=== PATIENT | female | born 1995 | race African-American/Black ===

== ENCOUNTER 2018-10-22 08:35 | Emergency (ER) | payer OTHER ==
--- NOTE | 2018-10-22 08:40 | PDOC ---
History of Present Illness - General Stated Complaint: DIABETIC Time Seen by Provider: 10/22/18 08:40 History Source: Patient Exam Limitations: No Limitations - History of Present Illness Initial Comments: HPI: 23 y/o female BIBEMS to [facility] ER complaining of diffuse abdominal pain, vomiting , and diarrhea. Symptoms started yesterday at work. Pt unwilling to provide further details regarding the pt. Runs her hands over her entire abdomen when asked to point to location of pain. Reports she was evaluated at [facility] ED last evening. Was given toradol, which allowed her to sleep. Found to be hyperglycemia, which was corrected. Pt then elected to leave AMA because she, felt better. Symptoms returned this morning. Pt is a type one diabetic. Diagnosed at age 12. Managed with humalog and novolin. Has not taken insulin at home in two weeks after running out. Pt does not have a PCP or skull splitter. States she has her insulin filled by different emergency departments. PCP: None Social Hx: - EtOH: Denies - Tobacco: Denies - Street drugs: Denies Medical Hx: - T1DM - Gallstones - Pancreatitis Past History - Past Medical History Allergies/Adverse Reactions: Allergies Allergy/AdvReac Type Severity Reaction Status Date / Time No Known Allergies Allergy Verified 10/22/18 08:44 Home Medications: Ambulatory Orders Insulin Detemir [Levemir Flextouch] 10 unit SQ HS 10/22/18 Review of Systems - Review of Systems Able to Perform ROS?: Yes Comments:: Pt refused to fully participate in ROS Denies chest pain Denies SOB *Physical Exam - Vital Signs Vital Signs (72 hours) 10/22/18 08:40 Temperature 97.7 F Pulse Rate 76 Respiratory 22 H Rate Blood Pressure 155/96 O2 Sat by Pulse 98 Oximetry (%) - Physical Exam Comments: Constitutional: Non-toxic adult female in no acute distress. Found semi-fowlers on hospital bed. Alert and oriented x4. Speech was non-labored, non-pressured. Head: Normocephalic. No obvious external signs of trauma. Eyes: Sclerae white. Ears: Hearing grossly intact. Nose: No nasal discharge. Neck: Supple, trachea is midline. Cardiovascular / Chest: Regular rate and regular rhythm. No murmur, rubs, clicks, or gallops. Peripheral pulses: radial pulses full. Respiratory: Breathing unlabored. Normal respiratory pattery. No Kussmaul breathing. Equal chest rise and fall. Clear to auscultation bilaterally. No stridor, no wheezing, no rhonchi. Gastrointestinal: abdomen is diffusely tender. Pt jerked providers hands off abdomen when attempting to perform full abdominal exam. Globally, abdomen appears soft and non-distended. No overlying skin lesions or obvious signs of trauma. Neuro: Alert and oriented. Moving all four extremities spontaneously. Gait normal. Skin: Warm, dry, and intact. No diaphoresis. Psych: Affect: emotive. ED Treatment Course - LABORATORY CBC & Chemistry Diagram: 10/22/18 09:15 10/22/18 09:15 - ADDITIONAL ORDERS Additional order review: 10/22/18 10/22/18 09:10 09:00 POC Glucometer 355 Opiates Screen Negative Methadone Screen Negative Barbiturate Screen Negative Phencyclidine Screen Negative Ur Amphetamines Screen Negative MDMA (Ecstasy) Screen Negative Benzodiazepines Screen Negative Cocaine Screen Negative 10/22/18 09:00 POC Glucometer 355
[2018-10-22 08:43] VITALS: BMI 27.4
[2018-10-22] MEDS ORDERED: LACTATED RINGERS SOLUTION 1000 ML INFUS.BAG IV ONE (08:47)
[2018-10-22] MEDS ORDERED: ONDANSETRON 4 MG/2 ML VIAL IVPUSH ONE (09:22)
[2018-10-22] MEDS ORDERED: ACETAMINOPHEN 1000 MG/100 ML VIAL (NON FORMULARY) IVPB ONE (09:31)
[2018-10-22] MEDS ORDERED: ONDANSETRON 4 MG/2 ML VIAL ONE (09:31)
[2018-10-22 09:38] LABS: VENOUS PC02 38.8 mmHg (38-52); VENOUS PH 7.37 (7.32-7.42); VENOUS PO2 27.2 mmHg (28-48)
[2018-10-22] MEDS ORDERED: ACETAMINOPHEN INJECTION 100 ML IVPB ONE (09:40)
[2018-10-22 09:44] LABS: BASO % 0.7 % (0-2.0); EOS % 0.6 % (0-4.5); HEMATOCRIT 41.8 % (32.4-45.2); HEMOGLOBIN 14.1 GM/dL (10.7-15.3); LYMPH % 30.4 % (8-40); MCHC 33.8 g/dl (32.0-36.0); MEAN CELL VOLUME 91.7 fl (80-96); MEAN PLT VOLUME 10.4 fl (7.5-11.1); MONO % 5.3 % (3.8-10.2); PLATELET COUNT 180 K/MM3 (134-434); RBC 4.55 M/mm3 (3.60-5.2); RDW 13.2 % (11.6-15.6); WHITE BLOOD COUNT 7.7 K/mm3 (4.0-10.0)
[2018-10-22 09:47] LABS: COCAINE, UR NEGATIVE ng/ml (CUTOFF=300); METHADONE, UR NEGATIVE ng/ml (CUTOFF=300); OPIATES, URI NEGATIVE ng/ml (CUTOFF=300); PHENCYCLIDINE,URINE NEGATIVE ng/ml (CUTOFF=25); URINE AMPHETAMINES NEGATIVE ng/ml (CUTOFF=500); URINE BARBITURATES NEGATIVE ng/ml (CUTOFF=200); URINE BENZODIAZEPINES NEGATIVE ng/ml (CUTOFF=200)
[2018-10-22 10:03] LABS: PH,URINE 5.5 (5.0-8.0); URINE APPEARANCE CLEAR; URINE BILIRUBIN NEGATIVE (<2.0 mg/dL); URINE COLOR YELLOW; URINE GLUCOSE (UA) 2+ (NEGATIVE); URINE KETONE 2+ (NEGATIVE); URINE LEUK ESTERASE NEGATIVE (NEGATIVE); URINE NITRITE POSITIVE (NEGATIVE); URINE PROTEIN NEGATIVE (NEGATIVE); URINE UROBILINOGEN 0.2 mg/dL (0.2-1.0)
[2018-10-22 10:10] LABS: ALBUMIN 3.6 g/dl (3.4-5.0); ALK PHOS 87 U/L (45-117); ANION GAP 10 MMOL/L (8-16); BILIRUBIN,TOTAL 0.6 mg/dL (0.2-1); BLOOD UREA NITROGEN 9 mg/dL (7-18); CALCIUM 8.9 mg/dL (8.5-10.1); CHLORIDE 105 mmol/L (98-107); CO2 22 mmol/L (21-32); LIPASE 337 U/L (73-393); MAGNESIUM 1.9 mg/dL (1.8-2.4); SGOT/AST 17 U/L (15-37); SGPT/ALT 17 U/L (13-61); SODIUM 137 mmol/L (136-145); TOT PROT 7.6 g/dl (6.4-8.2)
[2018-10-22] MEDS ORDERED: FAMOTIDINE 20 MG/50 ML IVPB 20 MG/50 ML MG IVPB ONE ×2 (10:14→10:26)
[2018-10-22] MEDS ORDERED: METOCLOPRAMIDE HCL INJECTION 10 MG/2 ML VIAL IVPB ONE (10:15)
[2018-10-22] MEDS ORDERED: METOCLOPRAMIDE HCL INJECTION 10 MG/2 ML VIAL ONE (10:18)
--- NOTE | 2018-10-22 10:28 | PDOC ---
Attending Attestation - Resident Resident Name: OttBrannon - ED Attending Attestation I have performed the following: I have examined & evaluated the patient, The case was reviewed & discussed with the resident, I agree w/resident's findings & plan, Exceptions are as noted - HPI HPI: 10/22/18 10:17 The patient is a 23 year old female with a PMH of Type 1 DM since age 12 who presents to the ER with elevated blood glucose of 355 and complaining of abdominal pain since yesterday. She also reports associated nonbloody, nonbilious vomit and nonbloody diarrhea. Patient was seen at [facility] yesterday and given toradol then. She reports feeling better after toradol, and signed out AMA. She presents to this ER for evaluation of recurrent abdominal pain. Reports her pain is worse in the epigastric area and that it feels like her previous pancreatitis. Has not taken insulin in 2 weeks as she ran out. 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 The patient denies chest pain, shortness of breath, headache and dizziness. Denies fever, chills, and constipation. Denies dysuria, frequency, urgency and hematuria. Allergies: NKA Past surgical history: None reported. Social history: No reported alcohol, drug or cigarette use. - Physicial Exam PE: 10/22/18 10:33 GENERAL: Awake, alert, and fully oriented, appears uncomfortable but in no acute distress HEAD: No signs of trauma EYES: PERRLA, EOMI, sclera anicteric, conjunctiva clear ENT: Oropharynx clear without exudates. Moist mucosa LUNGS: Breath sounds equal, clear to auscultation bilaterally. No wheezes, and no crackles HEART: Regular rate and rhythm, normal S1 and S2, no murmurs, rubs or gallops ABDOMEN: Diffuse abd ttp, however, when distracted no abd ttp. Soft, no guarding , no distention, no rebound. No masses EXTREMITIES: Normal range of motion, no edema. No erythema, or tenderness NEUROLOGICAL: Normal speech, cranial nerves intact, equal strength and sensation b/l. Normal gait. SKIN: Warm, Dry, normal turgor, no rashes or lesions noted. - Medical Decision Making 10/22/18 08:59 23yo F hx DM1, non compliant with insulin, pancreatitis presents to the ED with recurrent abd pain, N/V. Vitals wnl (RR normalized to 14 on my exam). Exam with non toxic appearing pt, with diffuse abd ttp, when distracted none. DDx includes DKA vs gastropareisis vs cannanbinoid hyperemesis vs gastroenteritis. Plan -labs -serum preg -IVF -antiemetics -pain control -reassess 10/22/18 10:42 CBC with no leukocytosis CMP with non-AG hyperglycemia Lipase neg Serum preg neg UA with nitrite +, but pt has no dysuria, frequency, urgerncy so will hold off on treatment UTox +THC although pt denies DDx includes gastropareisis vs cannabinoid hyperemesis vs gastroenteritis Pt noted by nurse to be sticking her finger down her throat on multiple occasions to make herself vomit Advised pt not to do so Pt requesting toradol for pain as this often works for her Toradol 30mg IV ordered Will PO challenge and reassess 10/22/18 11:44 Tolerating PO Abd discomfort resolved, rpt abd exam benign Discussed lab results with pt and the importance of taking insulin Dr. 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 Clinically well appearing, stable for DC I discussed the physical exam findings, ancillary test results and final diagnoses with the patient. I answered all of the patient's questions. The patient was satisfied with the care received and felt comfortable with the discharge plan and treatment plan. The patient will call their primary care physician within 24 hours to arrange follow-up and will return to the Emergency Department with any new, persistent or worsening symptoms. Heart Score/ECG Review #1 10/22/18 10:42 Twelve-lead EKG was performed and reviewed by me. Sinus bradycardia, rate 54. Normal axis. No ST elevations.. +PVC. No previous EKG to compare.
[2018-10-22] MEDS ORDERED: KETOROLAC TROMETHAMINE 30 MG/1 ML VIAL IVPUSH ONE (10:32)
[2018-10-22] MEDS ORDERED: KETOROLAC TROMETHAMINE 30 MG/1 ML VIAL ONE (10:34)
[2018-10-22 10:54] LABS: GLUCOSE,RANDOM 364 mg/dL (74-106)
[2018-10-22] MEDS ORDERED: INSULIN REGULAR HUMAN 100 UNITS/ML *VIAL SQ ONE (10:54)
[2018-10-22] MEDS ORDERED: INSULIN REGULAR HUMAN 100 UNITS/ML *VIAL ONE (11:32)
[2018-10-22 12:49] VITALS: BP 144/84; PULSE 67; TEMP 98.4
[2018-10-22 16:18] LABS: EPI CELLS 2+ /HPF (FEW); URINE BACTERIA 3+ /hpf (NONE SEEN)
--- NOTE | 2018-10-23 11:54 | EKG ---
Test Reason : Blood Pressure : / mmHG Vent. Rate : 054 BPM Atrial Rate : 054 BPM P-R Int : 126 ms QRS Dur : 084 ms QT Int : 422 ms P-R-T Axes : 046 085 062 degrees QTc Int : 400 ms SINUS BRADYCARDIA WITH SINUS ARRHYTHMIA WITH OCCASIONAL PREMATURE VENTRICULAR COMPLEXES OTHERWISE NORMAL ECG NO PREVIOUS ECGS AVAILABLE Confirmed by ENMANUEL ASHLEY, GUILLERMINA ([id number]) on 10/23/2018 11:54:07 AM Referred By: Confirmed By:GUILLERMINA SINGER MD
== END 2018-10-22 12:37 | disposition home or self-care (01) ==
LOC: JER 08:35
PROC: 3E013VG Introduction of Insulin into Subcutaneous Tissue, Percutaneous Approach (ICD-10-PCS; principal; 2018-10-22)
PROC: 3E033GC Introduction of Other Therapeutic Substance into Peripheral Vein, Percutaneous Approach (ICD-10-PCS; 2018-10-22)
PROC: 3E033GC Introduction of Other Therapeutic Substance into Peripheral Vein, Percutaneous Approach (ICD-10-PCS; 2018-10-22)
PROC: 3E033NZ Introduction of Analgesics, Hypnotics, Sedatives into Peripheral Vein, Percutaneous Approach (ICD-10-PCS; 2018-10-22)
PROC: 3E0333Z Introduction of Anti-inflammatory into Peripheral Vein, Percutaneous Approach (ICD-10-PCS; 2018-10-22)
DX: E10.65 Type 1 diabetes mellitus with hyperglycemia (principal); Z79.4 Long term (current) use of insulin; Z87.19 Personal history of other diseases of the digestive system; Z91.14 Patient's other noncompliance with medication regimen
CPT/HCPCS: 36415; 80053; 80307; 81003; 81015; 82009; 82803; 82962; 83690; 83735; 84703; 85025; 87086; 87186; 93005; 93010; 96365; 96372; 96375; 99284-25; J0131